=== PATIENT | female | born 1980 | race Caucasian/White ===

== ENCOUNTER 2021-11-16 10:00 | Emergency (ER) | payer SELFPAY ==
[~2021-11-16] VITALS: Ht 160 cm; Wt 115.0 kg
[2021-11-16 10:35] LABS: BASOPHILS % 0.5 % (0.0-2.0); EOSINOPHILS % 1.6 % (0.0-5.0); HEMATOCRIT. 37.3 % (36.0-48.0); HEMOGLOBIN. 12.8 g/dL (12.0-16.0); MEAN CORPUSCULAR HEMOGLOBIN 28.3 pg (28.0-32.0); MEAN CORPUSCULAR VOLUME 82.3 fL (81.0-99.0); MEAN PLATELET VOLUME 7.8 fl (7.4-10.4); MONOCYTES % 5.7 % (2.0-8.0); NEUTROPHILS % 64.2 % (40.0-76.0); PLATELET 328 x1000/uL (130-400); RED BLOOD CELL COUNT 4.53 mill/uL (4.2-5.4); RED CELL DISTRIBUTION WIDTH 15.6 % (11.6-14.6)
[2021-11-16 10:44] LABS: CHLORIDE 108 mEq/L (98-107)
[2021-11-16 11:06] LABS: CLARITY URINE TURBID (CLEAR); COLOR URINE RED (YELLOW); KETONES URINE 1+ (NEGATIVE); LEUKOCYTE ESTERASE URINE 2+ (NEGATIVE); NITRITE URINE NEGATIVE (NEGATIVE); OCCULT BLOOD URINE 3+ (NEGATIVE); PROTEIN URINE 2+ (NEGATIVE); SPECIFIC GRAVITY URINE 1.018 (1.005-1.030)
[2021-11-16 11:08] LABS: B-HCG QUANTITATIVE 37424 mIU/mL (<3)
[2021-11-16] MEDS ORDERED: CEFAZOLIN 1000MG PREMIX 50 ML IV ONE (12:00)
[2021-11-16] MEDS ORDERED: NITR-87 MT (13:00)
[2021-11-16] MEDS ORDERED: ACETAMINOPHEN 325MG TABLET PO ONE (13:15)
[2021-11-16 13:56] VITALS: BP 125/88
== END 2021-11-16 13:58 | disposition home or self-care (01) ==
LOC: ER 10:12
DX: O20.0 Threatened abortion (principal); Z3A.20 20 weeks gestation of pregnancy
CPT/HCPCS: 36415; 76805; 80053; 81003; 81025; 84702; 85025; 86850; 86900; 86901; 87086; 96365; 99284; J0690